=== PATIENT | male | born 1935 | race Caucasian/White ===

== ENCOUNTER 2016-12-26 05:40 | Inpatient (IN) | payer OTHER ==
[~2016-12-26] VITALS: Ht 167.6 cm; Wt 78.7 kg
--- NOTE | ~2016-12-26 | EKG ---
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: Bárbara GALVAN : 1935 Requested By: Luis E Chowdhury Order Number: [id number] MD: Dashawn Sung Measurements Intervals [place] Rate: 54 P: 46 SD: 191 QRS: 48 QRSD: 96 T: 14 QT: 459 QTc: 435 Interpretive Statements Sinus rhythm Borderline T wave abnormalities Compared to ECG 12/26/2016 05:49:42 T-wave abnormality now present Sinus bradycardia no longer present Electronically Signed On 12-26-2016 14:12:38 CDT by Dashawn Sung [email or web address] <ELECTRONICALLY SIGNED> By: Dashawn Sung MD 12/26/16 1412 1017 1017 Dashawn Sung MD /[facility]
--- NOTE | ~2016-12-26 | 2DMMODE ---
[facility] [address] [employer] [place] [address] 2 D/M-MODE ECHOCARDIOGRAM Name: AUDREY WANG Room #: 208-P [facility] IN [facility]#: [id number] Admission: 12/26/16 Attend Phys: Jaden Hendrix MD Discharge: Date of : 37 Date of Service: 12/26/16 1606 Report #: [id number] THIS REPORT FOR: //name// APPROVED REPORT Study performed: 12/26/2016 11:08:48 EXAM: Comprehensive 2D, Doppler, and color-flow Echocardiogram Patient Location: Bedside Room #: 208 Status: routine Other Information Study Quality: Good Risk Factors: Cardiac Risk Factors: DM, Hyperlipidemia Indications Aortic Valve Disease Diabetes Syncope Chest Pain 2D Dimensions RVDd: 33.82 mm LVEF(%): 62.24 (>50%) IVSd: 8.56 (7-11mm) LVOT Diam: 17.59 (18-24mm) LVDd: 41.12 mm PWd: 9.38 (7-11mm) LVDs: 27.48 (25-40mm) Aortic Root: 33.63 mm IVC: 21.00 mm Wilson's LVEF: 62.24 % Volumes Left Atrial Volume (Systole) Single Plane 4CH: 46.90 mL Single Plane 2CH: 42.23 mL LA ESV Index: 28.00 mL/m2 Aortic Valve AoV Peak Jaime.: 3.98 m/s AO Peak Gr.: 63.41 mmHg LVOT Max P.47 mmHg AO Mean Gr.: 42.92 mmHg LVOT Mean P.71 mmHg AO V2 Mean: 3.17 m/s LVOT Max V: 0.93 m/s AO V2 VTI: 108.90 cm LVOT Mean V: 0.60 m/s OLE (VTI): 0.49 cm2 LVOT V1 VTI: 22.18 cm [facility] [address] [place] [address] 2 D/M-MODE ECHOCARDIOGRAM Name: AUDREY WANG Room #: 208-P [facility] IN .R.#: [id number] Admission: 12/26/16 Attend Phys: Jaden Hendrix MD Discharge: Date of : 37 Date of Service: 12/26/16 1606 Report #: [id number] [id number] Vmax: 0.57 cm2 AI Vmax: 4.89 m/s SV (LVOT): 53.88 mL AI [place]: 2.40 m/s2 AI PHT: 590.53 ms Mitral Valve E/A Ratio: 1.0 MV Decel. Time: 232.05 ms MV E Max Jaime.: 1.08 m/s MV A Jaime.: 1.07 m/s MV PHT: 67.30 ms IVRT: 96.89 ms Pulmonary Valve PV Peak Jaime.: 0.83 m/s PV Peak Gr.: 2.78 mmHg Pulmonary Vein P Vein S: 0.50 m/s P Vein A: 0.23 m/s P Vein D: 0.28 m/s P Vein A Dur.: 101.5 msec P Vein S/D Ratio: 1.79 Tricuspid Valve TR Peak Jaime.: 2.95 m/s RAP Estimate: 10.00 mmHg TR Peak Gr.: 34.85 mmHg PA Pressure: 45.00 mmHg Left Ventricle The left ventricle is normal size. There is normal LV segmental wall motion. There is normal left ventricular wall thickness. The left ventricular systolic function is normal. The left ventricular ejection fraction is within the normal range. LVEF is 55-60%. The left ventricular diastolic function is normal. Right Ventricle The right ventricle is normal size. The right ventricular systolic function is normal. Atria The left atrium size is normal. The right atrium size is normal. Aortic Valve Aortic valve is calcified. Mild aortic regurgitation. Severe aortic stenosis. Calculated aortic valve area is 0.6 cm2 with maximum pressure gradient of 63 mmHg and mean pressure gradient of 42 [place] [address] 2 D/M-MODE ECHOCARDIOGRAM Name: AUDREY WANG Room #: 208-P [facility] IN M.R.#: [id number] Admission: 12/26/16 Attend Phys: Jaden Hendrix MD Discharge: Date of : 37 Date of Service: 12/26/16 1606 Report #: [id number] Mitral Valve Mild mitral annular calcification Mild mitral regurgitation. No evidence of mitral valve stenosis. Tricuspid Valve The tricuspid valve is normal in structure. There is mild tricuspid regurgitation. The right atrial pressure is estimated at 10 mmHg. There is moderate pulmonary hypertension. Pulmonic Valve The pulmonary valve is normal in structure. There is no pulmonic valvular regurgitation. Great Vessels There is moderate ascending aorta dilatation. 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 Pericardium There is no pericardial effusion. <Conclusion> The left ventricular systolic function is normal. There is normal LV segmental wall motion. LVEF is 55-60%. Aortic valve is calcified. Severe aortic stenosis, aortic valve area is 0.6 cm2 with maximum pressure gradient of 63 mmHg and mean pressure gradient of 42 mmHg. Mild aortic regurgitation. Mild mitral annular calcification. Mild mitral regurgitation. 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 Cannot exclude intimal flap. There is no pericardial effusion. <ELECTRONICALLY SIGNED> By: Rolo Collazo MD, FACC 12/26/16 1606 05 160 Rolo Collazo MD, FACC /INF
--- NOTE | ~2016-12-26 | EKG ---
[address] [place] [address] ELECTROCARDIOGRAM REPORT Name: AUDREY WANG Room #: 242-P ADM IN M.R.#: [id number] Admission: 12/26/16 Attend Phys: Jaden Hendrix MD Discharge: Date of : 37 Report #: [id number] THIS REPORT FOR: //name// [facility] Test Date: 2016-12-28 Test Time: 07:32:37 Pat Name: AUDREY WANG Department: Room: 242 P Gender: M Performance Architect: Bárbara GALVAN : 1935 Requested By: Michelle Ayoub Order Number: [id number] MD: Rolo Collazo Measurements Intervals [place] Rate: 86 P: 52 OR: 118 QRS: 70 QRSD: 135 T: 32 QT: 395 QTc: 473 Interpretive Statements Sinus rhythm Borderline short OR interval Right bundle branch block Compared to ECG 12/27/2016 07:49:17 Right bundle-branch block now present Electronically Signed On 12-28-2016 8:25:43 CDT by Rolo Collazo [email or web address] <ELECTRONICALLY SIGNED> By: Rolo Collazo MD, [facility] 12/28/1625 1 Rolo Collazo MD, [facility] /EPI
--- NOTE | ~2016-12-26 | O ---
[facility] [place] [address] OPERATIVE REPORT Name: AUDREY WANG Room #: 214-P [facility] [id number] Admission: 12/26/16 Attend Phys: Jaden Hendrix MD Discharge: 01/02/17 Date of : 37 Report #: [id number] THIS REPORT FOR: //name// CC: Rolo Collazo MD [facility] Jaden Morelos DATE OF SERVICE: 12/26/2016 DATE OF OPERATION: 12/26/2016 PREOPERATIVE DIAGNOSES: 1. Type A aortic dissection. 2. History of dzbdzkkf-zc-fnikqy aortic stenosis. OPERATIVE PROCEDURE PERFORMED: 1. Repair of type A aortic dissection with 28 mm Dacron interposition tube graft in the ascending aorta. 2. Aortic valve replacement with 27 mm Magna Ease Bovine pericardial bioprosthesis. 3. Left femoral artery exploration. 4. Deep hyperthermic circulatory arrest, 25 minutes. FINAL DIAGNOSES: 1. Repair of a type A aortic dissection with 28 mm Dacron interposition tube graft in the ascending aorta. 2. Aortic valve replacement with 27 mm Magna Ease Bovine pericardial bioprosthesis. 3. Left femoral artery exploration. 4. Deep hyperthermic circulatory arrest, 25 minutes. SURGEON: Manjit Moreno MD FONDANT PUFF MAKER: Trina Connell MD ANESTHESIA: General. OPERATIVE INDICATIONS: The patient is a 81-year-old male with the known history of coronary artery disease, prior stent placement. The patient was recently admitted with the complaint of syncopal episode. He had also complained of some jaw and neck pain. The patient had known history of moderate aortic stenosis, but when reevaluated upon echo, was found to have severe aortic stenosis. The echo demonstrated dilated aorta and subsequent CT scan demonstrated a type A dissection. The previous heparin drip that the patient was been on was stopped. We were consulted in his care, and the patient was subsequently brought to the [facility] [address] [address] OPERATIVE REPORT Name: AUDREY WANG Room #: 214-P [facility]#: [id number] Admission: 12/26/16 Attend Phys: Jaden Hendrix MD Discharge: 01/02/17 Date of : 37 Report #: [id number] operating room for emergent repair of this type A aortic dissection. OPERATIVE SUMMARY: The patient was brought to the operating room and placed on the OR table in a supine position. After anesthesia was induced via the general endotracheal route and monitoring lines have been positioned, the patient was prepped and draped in sterile fashion with chlorhexidine. I first performed the median sternotomy incision, but did not open the pericardium. We then made an oblique incision in the left groin, dissected down to expose the contents of the femoral sheath and isolated the common profunda and superficial femoral arteries. We gave the patient large dose of heparin. We cannulated the left common femoral artery with a 24-Ugandan cannula. We then opened the pericardium. We immediately encountered old clotted and unclotted blood. The ascending aorta was clearly dissected. We created the pericardial well and dissected the ascending aorta from the pericardium. We placed a venous cannula in the right atrium and antegrade cardioplegic cannula was placed in the ascending aorta. Cardiopulmonary bypass was begun. We then placed a retrograde cardioplegic cannula. Then under low flow conditions, the aorta was cross clamped distally and the heart was arrested with cold antegrade cardioplegia approximately 1 liter and then cold retrograde cardioplegia approximately 500 mL. A good diastolic arrest was achieved. This was augmented with topical ice slush and a phrenic nerve protector was used. Diastolic arrest was achieved and maintained throughout this operation with intermittent doses of cold retrograde and antegrade cardioplegia as well as topical ice slush. Immediate cooling was performed anticipating deep hypothermic circulatory arrest. While we were cooling the patient, we excised the ascending aorta, T'ing things off close to the clamp distally. Proximally, the dissection extended into the right and the noncoronary sinuses. We reapproximated the aorta layers using BioGlue in the sinuses. We found the aortic valve leaflets to be heavily calcified and poorly mobile. They were excised. The annulus was debrided of any calcifications. We sized the valve and felt that a 27 mm aortic bioprosthesis would be appropriate. This was an [employer] product, the Magna Ease Bovine pericardial valve. We then placed our 2-0 Ethibond sutures from the ventricular to the aortic side of the annulus circumferentially around the annulus. The sutures were brought up through the valve sewing rim. The valve was seated. Sutures were securely tied. About this time, we reached a low temperature of 18 degrees centigrade. We placed the patient in steep Trendelenburg. We shut the tube off and drained blood to be able to expose aortic arch. We found a tear in the arch at the base of the innominate artery. This was repaired with pledgeted 4-0 Prolene sutures from the anterior to the exterior of the aorta. I felt there was good apposition of this tear. We then trimmed the aorta just proximal to the innominate artery and then reapproximated the layers of the aorta with BioGlue. We placed a felt stripe around the aorta distally just as we had done on the proximal aorta after valve replacement was performed. Next, we performed our distal anastomosis. We selected 28 mm Dacron tube graft, constructed anastomosis with 4-0 Prolene, taking care to vaginate [facility] [address] [place] [address] OPERATIVE REPORT Name: SUMMERSOFIAUDREY Room #: 214-P [facility] IN ..#: [id number] Admission: 12/26/16 Attend Phys: Jaden Hendrix MD Discharge: 01/02/17 Date of : 37 Report #: [id number] the graft into the anterior of the aorta. Once this was completed, we slowly restarted the pump, taking care to make sure the head vessels were appropriately deaired. We then resumed full flow and full rewarming of the patient. Next, we constructed our proximal anastomosis using 4-0 Prolene to the proximal aorta. An antegrade vent needle was placed in the graft. With the patient still in steep Trendelenburg, we gave warm cardioplegia both retrograde and antegrade and performed deairing maneuvers in the left ventricular apex with an 18 gauge needle while holding blood in the heart and ventilating the lungs. The retrograde cannula was removed. We gave antegrade cardioplegia that was warm and performed similar deairing maneuvers, and then under low flow conditions, the aortic crossclamp was released and further deairing maneuvers were again completed through the left ventricular apex with an 18 gauge needle while ventilating the lungs. We then placed the patient back in the supine position. The patient was fully rewarmed to 37 degree centigrades. Three successive doses of calcium and a single dose of magnesium were given over 3-5 minute intervals. Atrial and ventricular pacing wires were placed. The patient developed a suitable rhythm with pacing. Lungs were reinflated. The patient was weaned from cardiopulmonary bypass without inotropic support. Protamine was given to reverse the heparin and multiple blood products including packed red blood cells, FFP, cryoprecipitate and platelets were given in order to achieve hemostasis. We also gave recombinant factor VII. We felt the bleeding was appropriately controlled. We loosely reapproximated the pericardium over the aorta, placed two 32-Ugandan chest tubes in the pericardial space and brought them out through separate stab incisions. The sternum was closed with #7 wire. The fascia, subcutaneous and skin were closed in multiple layers with absorbable suture. The femoral artery that had previously been cannulated was decannulated, was repaired with 5-0 Prolene sutures in a running fashion. It was appropriately deaired and flow was then allowed back down the femoral artery. This wound was then closed in multiple layers with absorbable suture. We remained in the operating room for at least an hour while giving additional blood products and observing chest tube effluent. After approximately 500 mL of output, I elected to re-explore the patient. We reentered through the prior median sternotomy incision, removed the wires. We found a lot of clot anteriorly. I ultimately found a place on the distal anastomosis that was oozing. This was controlled with the single pledgeted 4-0 Prolene suture. Some bleeding was also noted from the soft tissues near the top of the sternum. Again once adequate hemostasis was achieved, the sternum was closed with #7 wire. The fascia, subcutaneous and skin were closed in multiple layers of absorbable suture. The procedure was completed. The patient was taken to the ICU in critical condition. Stable hemodynamics were present however. [address] [address] OPERATIVE REPORT Name: AUDREY WANG Room #: 214-P DIS IN M.R.#: [id number] Admission: 12/26/16 Attend Phys: Jaden Hendrix MD Discharge: 01/02/17 Date of : 37 Report #: [id number] Cardiopulmonary bypass times and crossclamp times are not available to me. Therapeutic circulatory arrest time was 25 minutes. <ELECTRONICALLY SIGNED> By: Manjit Moreno MD 01/24/17 0805 1759 194 Manjit Moreno MD /nt
--- NOTE | ~2016-12-26 | S ---
[facility] [place] [address] SURGICAL PATH RPT PROCEDURE Name: AUDREY JOSHI Aguilar Room #: 214-P ADM IN M.R.#: [id number] Admission: 12/26/16 Date of : 37 Discharge: Report #: [id number] Path Case #: [id number] PATHOLOGY REPORT COLLECTION DATE: 12/26/2016 RECEIVED DATE: 12/27/2016 SUBMITTING PHYS: Dr. Manjit Moreno OTHER PHYS: Dr. Trina Connell M.D. Dr. Jaden Collazo SPECIMEN(S) RECEIVED: A.Segment of ascending aorta B.Aortic valve * * * * * * * * * * * * FINAL DIAGNOSIS: A. Segment of ascending aorta, repair: - Extensive hemorrhage within vessel wall, consistent with the history of dissection. B. Aortic valve, repair: - Calcific sclerosis. PATHOLOGIST: Skyla Delgado M.D. REPORT ELECTRONICALLY SIGNED BY: Skyla Delgado M.D. DATE/TIME: 12/29/2016 16:27 * * * * * * * * * * * * GROSS PATHOLOGY: A. The specimen is received in formalin labeled "Audrey Joshi, segment of ascending aorta". Received are multiple segments of pale covarrubias vascular tissue measuring 7.8 x 4.8 x 2.8 cm in aggregate dimensions. The lining is whittaker-covarrubias to hemorrhagic in appearance. The specimen is submitted representatively in cassette A1. B. The specimen is received in formalin labeled "Audrey Joshi, aortic valve". Received are multiple segments of predominantly calcified white-covarrubias rubbery tissue measuring 3.7 x 2.2 x 0.6 cm in aggregate dimensions. The specimen is submitted representatively in cassette A1, following light decalcification. (CAA; 12/28/2016) CLINICAL HISTORY: Dissecting ascending thoracic aneurysm, severe aortic stenosis INITIAL CPT CODE(S): [facility] [address] [place] [address] SURGICAL PATH RPT PROCEDURE Name: AUDREY JOSHI Room #: 214-P [facility] IN ..#: [id number] Admission: 12/26/16 Date of : 37 Discharge: Report #: [id number] Path Case #: [id number]; [id number] B; [id number], [id number] Professional services performed by [facility] at [address], [place] [address] Technical services performed by [facility] at [address] [place] [address], [facility] [place] [address], [place] [address]. [facility] [place] [address] PHONE: [phone] DIRECTOR: Ash Garber M.D. * * * END OF REPORT * * *
--- NOTE | ~2016-12-26 | EKG ---
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 : 1935 Requested By: Kellie Cohen Order Number: [id number] MD: Rolo Collazo Measurements Intervals [place] Rate: 52 P: 36 [place]: 202 QRS: 42 QRSD: 103 T: 77 QT: 474 QTc: 441 Interpretive Statements Sinus bradycardia Baseline wander in lead(s) III Compared to ECG 07/24/1992 10:33:00 T-wave abnormality no longer present Electronically Signed On 12-26-2016 9:28:50 CDT by Rolo Collazo [email or web address] <ELECTRONICALLY SIGNED> By: Rolo Collazo MD, [facility] 12/26/16 0928 0549 0549 Rolo Collazo MD, [facility] /EPI
--- NOTE | ~2016-12-26 | EKG ---
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: Bárbara GALVAN : 1935 Requested By: Michelle Ayoub Order Number: [id number] MD: Dashawn Sung Measurements Intervals [place] Rate: 66 P: 69 [place]: 181 QRS: 72 QRSD: 84 T: 59 QT: 439 QTc: 460 Interpretive Statements Sinus rhythm ST elevation suggests acute pericarditis Compared to ECG 12/26/2016 10:17:52 ST (T wave) deviation now present T-wave abnormality no longer present Electronically Signed On 12-27-2016 8:14:58 CDT by Dashawn Sung [email or web address] <ELECTRONICALLY SIGNED> By: Dashawn Sung MD 12/27/16 0814 Dashawn Sung MD /EPI
--- NOTE | ~2016-12-26 | EKG ---
[address] [address] ELECTROCARDIOGRAM REPORT Name: AUDREY WANG Room #: 208-P ADM IN M.R.#: [id number] Admission: 12/26/16 Attend Phys: Jaden Hendrix MD Discharge: Date of : 39 Report #: [id number] THIS REPORT FOR: //name// [facility] ED Test Date: 2016-12-26 Test Time: 06:36:41 Pat Name: AUDREY WANG Department: Room: 208 P Gender: M Merchant Miller: PAOLA : 1935 Requested By: Rolo Collazo Order Number: [id number] MD: Dashawn Sung Measurements Intervals [place] Rate: 53 P: 34 [place]: 196 QRS: 41 QRSD: 102 T: 66 QT: 464 QTc: 436 Interpretive Statements Sinus rhythm Compared to ECG 12/26/2016 05:49:42 Sinus bradycardia no longer present Electronically Signed On 12-26-2016 17:05:17 CDT by Dashawn Sung [email or web address] <ELECTRONICALLY SIGNED> By: Dashawn Sung MD 12/26/16 1705 Dashawn Sung MD /MARK
[2016-12-26 05:42] VITALS: BP 129/83
[2016-12-26] MEDS ORDERED: ATORVASTATIN CA80 MG PO (05:47)
[2016-12-26] MEDS ORDERED: GLIMEPIRIDE1 MG PO (05:47)
[2016-12-26] MEDS ORDERED: GLUCOPHAGE XR750 MG PO (05:47)
[2016-12-26 06:10] LABS: ABSOLUTE NEUTROPHILS 5.3 thou/uL (1.4-8.2); BASOPHILS 0.4 % (0.0-2.0); EOSINOPHILS 5.8 % (0.0-3.0); HEMATOCRIT 38.7 % (42.0-52.0); HEMOGLOBIN 13.1 gm/dL (14.0-18.0); LYMPHOCYTES 15.1 % (24.0-44.0); MCH 32.6 pg (26.0-34.0); MCHC 33.8 g/dL (28.0-37.0); MCV 96.5 fL (80.0-100.0); MONOCYTES 5.2 % (1.0-8.0); PLATELET COUNT 165 thou/uL (150-400); POLYS 73.5 % (36.0-66.0); RBC 4.01 mil/uL (4.50-6.00); RDW 14.2 % (10.5-14.5); WBC 7.2 thou/uL (4.0-11.0)
[2016-12-26 06:20] LABS: CALCIUM 8.4 mg/dL (8.5-10.1); CREATININE 1.4 mg/dL (0.7-1.3); POTASSIUM 4.7 mmol/L (3.5-5.1)
[2016-12-26 06:28] LABS: TROPONIN-I 0.04 ng/mL (<0.04-0.07)
[2016-12-26 06:33] LABS: MANUAL DIFF NO
[2016-12-26 08:18] VITALS: BP 110/71
[2016-12-26 08:40] VITALS: BP 144/84
[2016-12-26 08:56] LABS: CHOLESTEROL 155 mg/dL (<200); HDL CHOLESTEROL 50 mg/dL (>40); LDL CHOLESTEROL 78 mg/dL (<100); TC:HDL 3.1 Ratio (Not establshd); TRIGLYCERIDE 136 mg/dL (<150); VLDL 27 mg/dL (<40)
[2016-12-26 11:10] VITALS: BP 143/93
[2016-12-26 15:50] VITALS: BP 186/119
[2016-12-26 23:43] LABS: HEMATOCRIT 21.8 % (42.0-52.0); HEMOGLOBIN 7.3 gm/dL (14.0-18.0); MCH 31.3 pg (26.0-34.0); MCHC 33.4 g/dL (28.0-37.0); MCV 93.7 fL (80.0-100.0); RBC 2.33 mil/uL (4.50-6.00); RDW 14.5 % (10.5-14.5); WBC 13.3 thou/uL (4.0-11.0)
[2016-12-27] VITALS (19 sets, daily range): BP systolic 60–102; BP diastolic 44–68
[2016-12-27 00:04] LABS: APTT 31.6 Seconds (24.5-32.8); FIBRINOGEN 133.4 mg/dL (210-360); PROTIME 10.3 Seconds (9.3-11.4)
[2016-12-27 00:22] LABS: POC BE 0 mmol/L (-2.0 to +3.0); POC CA IONIZED 3.8 mg/dL (4.5-5.3); POC FiO2 100 %; POC GLUCOSE 157 mg/dL (70-99); POC HEMOGLOBIN 7.8 g/dL (14.0-18.0); POC POTASSIUM > 7.5 mmol/L (3.5-5.1); POC SODIUM 128 mmol/L (136-145); POC pCO2 50.8 mmHg (35.0-45.0); POC pH 7.316 (7.360-7.450)
[2016-12-27 00:22] LABS: POC BE 1 mmol/L (-2.0 to +3.0); POC CA IONIZED 3.1 mg/dL (4.5-5.3); POC FiO2 100 %; POC GLUCOSE 165 mg/dL (70-99); POC HCO3 22.8 mmol/L (22.0-26.0); POC HEMOGLOBIN 6.1 g/dL (14.0-18.0); POC POTASSIUM 6.9 mmol/L (3.5-5.1); POC SODIUM 121 mmol/L (136-145); POC pCO2 25.3 mmHg (35.0-45.0); POC pH 7.564 (7.360-7.450)
[2016-12-27 00:22] LABS: POC BE -5 mmol/L (-2.0 to +3.0); POC CA IONIZED 3.8 mg/dL (4.5-5.3); POC FiO2 100 %; POC GLUCOSE 174 mg/dL (70-99); POC HCO3 21.5 mmol/L (22.0-26.0); POC HEMOGLOBIN 7.5 g/dL (14.0-18.0); POC POTASSIUM 5.4 mmol/L (3.5-5.1); POC SODIUM 132 mmol/L (136-145); POC pCO2 46.5 mmHg (35.0-45.0); POC pH 7.274 (7.360-7.450)
[2016-12-27 00:22] LABS: POC BE -3 mmol/L (-2.0 to +3.0); POC CA IONIZED 3.7 mg/dL (4.5-5.3); POC FiO2 30 %; POC GLUCOSE 149 mg/dL (70-99); POC HCO3 22.4 mmol/L (22.0-26.0); POC HEMOGLOBIN 7.5 g/dL (14.0-18.0); POC POTASSIUM 7.2 mmol/L (3.5-5.1); POC SODIUM 126 mmol/L (136-145); POC pCO2 40.5 mmHg (35.0-45.0)
[2016-12-27 00:22] LABS: POC BE 0 mmol/L (-2.0 to +3.0); POC CA IONIZED 4.3 mg/dL (4.5-5.3); POC FiO2 100 %; POC GLUCOSE 182 mg/dL (70-99); POC HCO3 23.2 mmol/L (22.0-26.0); POC HEMOGLOBIN 6.8 g/dL (14.0-18.0); POC POTASSIUM 5.9 mmol/L (3.5-5.1); POC SODIUM 128 mmol/L (136-145); POC pCO2 30.8 mmHg (35.0-45.0); POC pH 7.486 (7.360-7.450)
[2016-12-27 00:22] LABS: POC BE 1 mmol/L (-2.0 to +3.0); POC CA IONIZED 3.5 mg/dL (4.5-5.3); POC FiO2 100 %; POC GLUCOSE 180 mg/dL (70-99); POC HCO3 24.5 mmol/L (22.0-26.0); POC HEMOGLOBIN 6.8 g/dL (14.0-18.0); POC POTASSIUM 7.1 mmol/L (3.5-5.1); POC SODIUM 126 mmol/L (136-145); POC pCO2 34.7 mmHg (35.0-45.0); POC pH 7.457 (7.360-7.450)
[2016-12-27 00:22] LABS: POC BE -1 mmol/L (-2.0 to +3.0); POC CA IONIZED 4.3 mg/dL (4.5-5.3); POC FiO2 100 %; POC GLUCOSE 171 mg/dL (70-99); POC HCO3 23.8 mmol/L (22.0-26.0); POC HEMOGLOBIN 11.6 g/dL (14.0-18.0); POC POTASSIUM 5.2 mmol/L (3.5-5.1); POC SODIUM 135 mmol/L (136-145); POC pH 7.382 (7.360-7.450)
[2016-12-27 00:22] LABS: POC BE -4 mmol/L (-2.0 to +3.0); POC CA IONIZED 3.8 mg/dL (4.5-5.3); POC FiO2 100 %; POC GLUCOSE 152 mg/dL (70-99); POC HCO3 22.3 mmol/L (22.0-26.0); POC HEMOGLOBIN 8.2 g/dL (14.0-18.0); POC POTASSIUM > 7.5 mmol/L (3.5-5.1); POC SODIUM 130 mmol/L (136-145); POC pH 7.294 (7.360-7.450)
[2016-12-27 00:22] LABS: POC BE -2 mmol/L (-2.0 to +3.0); POC CA IONIZED 3.6 mg/dL (4.5-5.3); POC FiO2 100 %; POC GLUCOSE 171 mg/dL (70-99); POC HCO3 21.8 mmol/L (22.0-26.0); POC HEMOGLOBIN 8.8 g/dL (14.0-18.0); POC SODIUM 134 mmol/L (136-145); POC pCO2 29.8 mmHg (35.0-45.0); POC pH 7.472 (7.360-7.450)
[2016-12-27 01:06] LABS: HEMATOCRIT 22.5 % (42.0-52.0); HEMOGLOBIN 7.8 gm/dL (14.0-18.0); MCH 32.2 pg (26.0-34.0); MCHC 34.7 % (28.0-37.0); RBC 2.42 mil/uL (4.50-6.00); RDW 14.6 % (10.5-14.5); WBC 10.3 thou/uL (4.0-11.0)
[2016-12-27 01:23] LABS: APTT 29.8 Seconds (24.5-32.8); FIBRINOGEN 195.8 mg/dL (210-360)
[2016-12-27 02:51] LABS: POC BE -4 mmol/L (-2.0 to +3.0); POC CA IONIZED 4.1 mg/dL (4.5-5.3); POC FiO2 100 %; POC GLUCOSE 147 mg/dL (70-99); POC HCO3 20.2 mmol/L (22.0-26.0); POC HEMOGLOBIN 7.8 g/dL (14.0-18.0); POC POTASSIUM 4.1 mmol/L (3.5-5.1); POC SODIUM 137 mmol/L (136-145); POC pCO2 31.8 mmHg (35.0-45.0); POC pH 7.413 (7.360-7.450)
[2016-12-27 02:51] LABS: POC BE -2 mmol/L (-2.0 to +3.0); POC CA IONIZED 3.9 mg/dL (4.5-5.3); POC FiO2 100 %; POC GLUCOSE 142 mg/dL (70-99); POC HCO3 21.5 mmol/L (22.0-26.0); POC HEMOGLOBIN 7.5 g/dL (14.0-18.0); POC SODIUM 137 mmol/L (136-145); POC pCO2 30.8 mmHg (35.0-45.0); POC pH 7.453 (7.360-7.450)
[2016-12-27 08:54] LABS: ABG SAMPLE TYPE ARTERIAL; BE(vivo) -6.1 mmol/L (-2 to +3); HCO3 18.1 mmol/L (22.0-26.0); LACTATE 2.77 mmol/L (0.5-2.0); O2(CT) 15.2 mL/dL (15.0-23.0); O2Hb 97.6 % (92.0-98.0); PCO2 31.2 mmHg (35.0-45.0); PO2 217.2 mmHg (80.0-100.0); pH 7.381 (7.360-7.450); sO2 99.4 % (92.0-98.0)
[2016-12-27 08:55] LABS: HEMATOCRIT 25.6 % (42.0-52.0); HEMOGLOBIN 8.8 gm/dL (14.0-18.0); MCH 31.3 pg (26.0-34.0); MCHC 34.4 g/dL (28.0-37.0); MCV 90.9 fL (80.0-100.0); RBC 2.82 mil/uL (4.50-6.00); RDW 15.9 % (10.5-14.5); WBC 9.4 thou/uL (4.0-11.0)
[2016-12-27 08:56] LABS: STICK SITE LINE
[2016-12-27 08:57] LABS: TIDAL VOLUME 600 ml
[2016-12-27 09:05] LABS: CREATININE 1.9 mg/dL (0.7-1.3); POTASSIUM 4.6 mmol/L (3.5-5.1)
[2016-12-27 09:09] LABS: ABG SAMPLE TYPE VENOUS; BE(vivo) -5.5 mmol/L (-2 to +3); HCO3 20.5 mmol/L (22.0-26.0); LACTATE 2.14 mmol/L (0.5-2.0); O2(CT) 6.5 mL/dL (15.0-23.0); PCO2 VENOUS 42.6 mmHg (41.0-51.0); PO2 VENOUS 29.7 mmHg (35.0-45.0); sO2 VENOUS 50.4 % (65.0-85.0); tCO2 21.8 mmol/L (24.0-30.0)
[2016-12-27 09:09] LABS: PROTIME 10.6 Seconds (9.3-11.4)
[2016-12-27 09:10] LABS: O2Hb VENOUS 50.3 (65.0-85.0); STICK SITE LINE
[2016-12-27 09:14] LABS: ALBUMIN 3.4 g/dL (3.4-5.0); TOTAL BILIRUBIN 0.8 mg/dL (<0.1-1.0); TOTAL PROTEIN 4.9 g/dL (6.4-8.2)
[2016-12-27 11:01] LABS: POC BE 3 mmol/L (-2.0 to +3.0); POC CA IONIZED 3.6 mg/dL (4.5-5.3); POC FiO2 7 %; POC GLUCOSE 154 mg/dL (70-99); POC HCO3 27.2 mmol/L (22.0-26.0); POC HEMOGLOBIN 7.5 g/dL (14.0-18.0); POC POTASSIUM 6.7 mmol/L (3.5-5.1); POC SODIUM 129 mmol/L (136-145); POC pCO2 40.6 mmHg (35.0-45.0); POC pH 7.434 (7.360-7.450)
[2016-12-27 12:54] LABS: HEMOGLOBIN 10.1 gm/dL (14.0-18.0); RBC 3.36 mil/uL (4.50-6.00); WBC 11.7 thou/uL (4.0-11.0)
[2016-12-27 12:55] LABS: CREATININE 1.6 mg/dL (0.7-1.3); HEMATOCRIT 30.6 % (42.0-52.0); MCH 29.9 pg (26.0-34.0); MCHC 32.9 % (28.0-37.0); POTASSIUM 4.3 mmol/L (3.5-5.1); RDW 15.6 % (10.5-14.5)
[2016-12-27 12:56] LABS: CALCIUM 7.9 mg/dL (8.5-10.1); MAGNESIUM 2.1 mg/dL (1.8-2.4)
[2016-12-27 16:14] LABS: CREATININE 2.4 mg/dL (0.7-1.3)
[2016-12-27 20:08] LABS: ABG COMMENT CMV; ABG SAMPLE TYPE ARTERIAL; BE(vivo) -3.7 mmol/L (-2 to +3); LACTATE 1.62 mmol/L (0.5-2.0); O2(CT) 12.8 mL/dL (15.0-23.0); O2Hb 96.7 % (92.0-98.0); PO2 126.7 mmHg (80.0-100.0); STICK SITE ALINE; TIDAL VOLUME 600 ml; pH 7.383 (7.360-7.450); sO2 98.5 % (92.0-98.0); tCO2 22.1 mmol/L (24.0-30.0)
[2016-12-27 20:33] LABS: ABG SAMPLE TYPE ARTERIAL; BE(vivo) -6.2 mmol/L (-2 to +3); HCO3 19.3 mmol/L (22.0-26.0); LACTATE 1.23 mmol/L (0.5-2.0); O2(CT) 12.2 mL/dL (15.0-23.0); O2Hb 96.3 % (92.0-98.0); PO2 120.6 mmHg (80.0-100.0); Pressure Support 6 cm H20; STICK SITE ALINE; pH 7.323 (7.360-7.450); sO2 98.1 % (92.0-98.0); tCO2 20.4 mmol/L (24.0-30.0)
[2016-12-27 21:43] LABS: ABG SAMPLE TYPE ARTERIAL; BE(vivo) -6.3 mmol/L (-2 to +3); LACTATE 1.17 mmol/L (0.5-2.0); O2(CT) 12.3 mL/dL (15.0-23.0); O2Hb 96.5 % (92.0-98.0); PO2 126.9 mmHg (80.0-100.0); sO2 98.3 % (92.0-98.0); tCO2 20.2 mmol/L (24.0-30.0)
[2016-12-27 21:44] LABS: STICK SITE ALINE; pH 7.329 (7.360-7.450)
[2016-12-28] VITALS (17 sets, daily range): BP systolic 89–135; BP diastolic 54–83
[2016-12-28 05:47] LABS: HEMATOCRIT 23.7 % (42.0-52.0); HEMOGLOBIN 8.1 gm/dL (14.0-18.0); MCHC 34.3 g/dL (28.0-37.0); MCV 90.3 fL (80.0-100.0); RBC 2.63 mil/uL (4.50-6.00); RDW 16.8 % (10.5-14.5); WBC 9.5 thou/uL (4.0-11.0)
[2016-12-28 05:57] LABS: CALCIUM 7.8 mg/dL (8.5-10.1); CREATININE 2.7 mg/dL (0.7-1.3); MAGNESIUM 2.1 mg/dL (1.8-2.4); POTASSIUM 4.8 mmol/L (3.5-5.1)
[2016-12-28 17:56] LABS: URINE BILIRUBIN NEGATIVE (Negative); URINE BLOOD 2+ (Negative); URINE COLOR YELLOW; URINE GLUCOSE-RANDOM* NEGATIVE (Negative); URINE KETONES NEGATIVE (Negative); URINE NITRITE NEGATIVE (Negative); URINE PROTEIN (DIPSTICK) TRACE (Negative); URINE UROBILINOGEN 0.2 E.U./dl (0.2-1.0)
[2016-12-28 18:08] LABS: BACTERIA 1-9 Few /HPF (None Seen); CRYSTALS None Seen /LPF (None Seen); HYALINE CASTS >10 Many /LPF (None Seen); SQUAMOUS 0-3 Few /LPF (0-3); URINE RBC 3-10 Few /HPF (0-2); URINE WBC 6-15 Few /HPF (0-5)
[2016-12-29] VITALS (18 sets, daily range): BP systolic 97–126; BP diastolic 54–87
[2016-12-29 05:30] LABS: CALCIUM 7.8 mg/dL (8.5-10.1); CREATININE 2.3 mg/dL (0.7-1.3); POTASSIUM 4.6 mmol/L (3.5-5.1)
[2016-12-30 03:35] VITALS: BP 121/66
[2016-12-30 04:52] LABS: POTASSIUM 4.4 mmol/L (3.5-5.1)
[2016-12-30 08:06] VITALS: BP 122/67
[2016-12-30 15:13] VITALS: BP 119/66
[2016-12-30 19:32] VITALS: BP 126/67
[2016-12-30 23:13] VITALS: BP 121/73
[2016-12-31 03:51] VITALS: BP 133/68
[2016-12-31 05:15] LABS: CALCIUM 8.3 mg/dL (8.5-10.1); CREATININE 1.9 mg/dL (0.7-1.3); PHOSPHORUS 3.6 mg/dL (2.5-4.9); POTASSIUM 4.2 mmol/L (3.5-5.1)
[2016-12-31 08:18] VITALS: BP 138/76
[2016-12-31 12:39] VITALS: BP 116/58
[2016-12-31 16:22] VITALS: BP 120/61
[2016-12-31 19:39] VITALS: BP 147/79
[2017-01-01 03:19] LABS: ALBUMIN 2.8 g/dL (3.4-5.0); CALCIUM 7.9 mg/dL (8.5-10.1); CREATININE 1.7 mg/dL (0.7-1.3); PHOSPHORUS 3.4 mg/dL (2.5-4.9); POTASSIUM 4.5 mmol/L (3.5-5.1)
[2017-01-01 03:50] VITALS: BP 128/68
[2017-01-01 08:00] VITALS: BP 120/72
[2017-01-01 12:00] VITALS: BP 121/66
[2017-01-01 16:00] VITALS: BP 121/67
[2017-01-01 19:18] VITALS: BP 139/71
[2017-01-01 23:20] VITALS: BP 145/65
[2017-01-02 03:02] LABS: ALBUMIN 2.7 g/dL (3.4-5.0); CREATININE 1.6 mg/dL (0.7-1.3); PHOSPHORUS 3.7 mg/dL (2.5-4.9); POTASSIUM 4.2 mmol/L (3.5-5.1)
[2017-01-02 03:37] VITALS: BP 122/72
[2017-01-02 09:11] LABS: HEMATOCRIT 24.3 % (42.0-52.0); HEMOGLOBIN 8.2 gm/dL (14.0-18.0); MCH 31.6 pg (26.0-34.0); MCHC 33.7 g/dL (28.0-37.0); MCV 93.9 fL (80.0-100.0); RBC 2.58 mil/uL (4.50-6.00); RDW 14.9 % (10.5-14.5)
[2017-01-02 09:12] VITALS: BP 131/72
[2017-01-02 11:22] LABS: URINE BILIRUBIN NEGATIVE (Negative); URINE BLOOD TRACE (Negative); URINE COLOR YELLOW; URINE GLUCOSE-RANDOM* NEGATIVE (Negative); URINE KETONES NEGATIVE (Negative); URINE NITRITE NEGATIVE (Negative); URINE PROTEIN (DIPSTICK) NEGATIVE (Negative); URINE SPECIFIC GRAVITY <= 1.005 (1.003-1.035); URINE UROBILINOGEN 0.2 E.U./dl (0.2-1.0)
[2017-01-02] MEDS ORDERED: LOPRESSOR25 PO (12:16)
[2017-01-02] MEDS ORDERED: PACERONE 200 M200 M1 PO (12:16)
[2017-01-02] MEDS ORDERED: ACETAMINOPHEN325 M1 PO (12:17)
[2017-01-02 14:27] LABS: URINE BILIRUBIN NEGATIVE (Negative); URINE BLOOD NEGATIVE (Negative); URINE COLOR YELLOW; URINE GLUCOSE-RANDOM* NEGATIVE (Negative); URINE KETONES NEGATIVE (Negative); URINE LEUKOCYTES-REFLEX NEGATIVE (Negative); URINE PROTEIN (DIPSTICK) NEGATIVE (Negative); URINE SPECIFIC GRAVITY <= 1.005 (1.003-1.035); URINE UROBILINOGEN 0.2 E.U./dl (0.2-1.0)
== END 2017-01-02 15:33 | DRG 219 ==
LOC: ER 05:40 → ICU 07:50 → 2N 07:50 → EROBS 07:50 → 2N 08:22 → TBA 18:02 → ICU 23:26 → 2N 12-29 15:08
PROVIDERS: Emergency Medicine; Hospitalist; Internal Medicine; Internal Medicine Nephrology; Nurse Practitioner; Student in an Organized Health Care Education/Training Program; Thoracic Surgery (Cardiothoracic Vascular Surgery)
PROC: 02RF0JZ Replacement of Aortic Valve with Synthetic Substitute, Open Approach (ICD-10-PCS; principal; 2016-12-26)
PROC: 5A1221Z Performance of Cardiac Output, Continuous (ICD-10-PCS; principal; 2016-12-26)
PROC: 02RX0JZ Replacement of Thoracic Aorta, Ascending/Arch with Synthetic Substitute, Open Approach (ICD-10-PCS; principal; 2016-12-26)
PROC: 30233M1 Transfusion of Nonautologous Plasma Cryoprecipitate into Peripheral Vein, Percutaneous Approach (ICD-10-PCS; 2016-12-26)
PROC: 30233K1 Transfusion of Nonautologous Frozen Plasma into Peripheral Vein, Percutaneous Approach (ICD-10-PCS; 2016-12-26)
PROC: 30233L1 Transfusion of Nonautologous Fresh Plasma into Peripheral Vein, Percutaneous Approach (ICD-10-PCS; 2016-12-26)
PROC: 30233R1 Transfusion of Nonautologous Platelets into Peripheral Vein, Percutaneous Approach (ICD-10-PCS; 2016-12-26)
PROC: 5A1935Z Respiratory Ventilation, Less than 24 Consecutive Hours (ICD-10-PCS; 2016-12-27)
PROC: 02HV33Z Insertion of Infusion Device into Superior Vena Cava, Percutaneous Approach (ICD-10-PCS; 2016-12-27)
PROC: B548ZZA Ultrasonography of Superior Vena Cava, Guidance (ICD-10-PCS; 2016-12-27)
DX: I71.01 Dissection of thoracic aorta (principal); R57.0 Cardiogenic shock; J96.00 Acute respiratory failure, unspecified whether with hypoxia or hypercapnia; G93.40 Encephalopathy, unspecified; D62 Acute posthemorrhagic anemia; N17.9 Acute kidney failure, unspecified; E78.00 Pure hypercholesterolemia, unspecified; I35.0 Nonrheumatic aortic (valve) stenosis; I25.10 Atherosclerotic heart disease of native coronary artery without angina pectoris; E11.65 Type 2 diabetes mellitus with hyperglycemia; I10 Essential (primary) hypertension; E78.5 Hyperlipidemia, unspecified; R41.0 Disorientation, unspecified; Z98.49 Cataract extraction status, unspecified eye; Z90.49 Acquired absence of other specified parts of digestive tract; Z95.5 Presence of coronary angioplasty implant and graft; Z83.3 Family history of diabetes mellitus; Z82.49 Family history of ischemic heart disease and other diseases of the circulatory system; Z79.899 Other long term (current) drug therapy; Z81.8 Family history of other mental and behavioral disorders; Z95.2 Presence of prosthetic heart valve
CPT/HCPCS: 10078; 10081; 47000; 47001; 47002; 47297; 47335; 47382; 48888; 50011; 50167; 50172; 50409; 50456; 50497; 51089; 51965; 52088; 52131; 53327; 53358; 54118; 55022; 56524; 56525; 56526; 56527; 56528; 56529; 56531; 56533; 56660; 56759; 57080; 57082; 57093; 62110; 62950; 64029; 65002; 65003; 65020; 65090; 65120

== ENCOUNTER 2017-01-02 09:49 | Inpatient (IN) | payer OTHER ==
[~2017-01-02] VITALS: Ht 167.6 cm; Wt 77.5 kg
--- NOTE | ~2017-01-02 | HC ---
[facility] [place] [address] CONSULTATION Name: AUDREY WANG Room #: 513-P [facility] IN .R.#: [id number] Admission: 01/02/17 Attend Phys: Audrey Lau MD Discharge: 01/13/17 Date of : 39 Report #: [id number] THIS REPORT FOR: //name// [facility] DATE OF SERVICE: 01/09/2017 NEUROBEHAVIORAL CONSULTATION ATTENDING PHYSICIAN: Audrey Lau M.D. ADVERTISER: Rj Pierce, PhD CLINICAL PRESENTATION: The patient is a 81-year-old male who was admitted to the rehabilitation unit at [facility] for a comprehensive inpatient rehabilitation program because of multifactorial encephalopathy. His history includes bioprosthetic valve replacement and acute respiratory failure with acute kidney injury. He has diabetes, aortic valve, lumbar back surgery in 1981, coronary artery disease. A complete description of his medical condition and history can be found in his medical record. Neuropsychological consultation was requested to provide assistance in the assessment of cognitive and emotional status and to provide recommendations and services. The patient was found to have delirium. His delirium appeared to resolve and underlying mild neurocognitive disorder persist. A complete neuropsych assessment was not completed prior to discharge. He may benefit from a followup assessment to clarify cognitive deficits, assist with diagnosis and treatment planning. Thank you very much for allowing me to provide the consultation on this patient. <ELECTRONICALLY SIGNED> By: Rj Pierce, PhD 01/15/17 1416 1455 28 Rj Pierce, PhD /nt
[~2017-01-02 09:49] MED LIST: ATORVASTATIN CA80 MG PO; GLIMEPIRIDE1 MG PO; GLUCOPHAGE XR750 MG PO
[2017-01-02] MEDS ORDERED: PACERONE 200 M200 M1 PO (12:16)
[2017-01-02] MEDS ORDERED: LOPRESSOR25 PO (12:16)
[2017-01-02] MEDS ORDERED: ACETAMINOPHEN325 M1 PO (12:17)
[2017-01-02 16:00] VITALS: BP 122/67
[2017-01-03 04:00] VITALS: BP 129/64; BP 129/69
[2017-01-03 06:02] LABS: ALBUMIN 2.7 g/dL (3.4-5.0); CALCIUM 8.1 mg/dL (8.5-10.1); CREATININE 1.5 mg/dL (0.7-1.3); PHOSPHORUS 4.1 mg/dL (2.5-4.9); POTASSIUM 4.5 mmol/L (3.5-5.1)
[2017-01-03 12:12] VITALS: BP 96/67
[2017-01-03 13:00] LABS: HEMATOCRIT 27.1 % (42.0-52.0); HEMOGLOBIN 9.2 gm/dL (14.0-18.0); MCH 31.8 pg (26.0-34.0); MCV 93.4 fL (80.0-100.0); RBC 2.9 mil/uL (4.50-6.00); RDW 15.3 % (10.5-14.5); WBC 10.7 thou/uL (4.0-11.0)
[2017-01-03 16:00] VITALS: BP 127/73
[2017-01-03 19:40] VITALS: BP 120/71
[2017-01-04 00:03] VITALS: BP 120/71
[2017-01-04 04:00] VITALS: BP 116/54
[2017-01-04 10:01] LABS: ALBUMIN 2.9 g/dL (3.4-5.0); CALCIUM 8.5 mg/dL (8.5-10.1); CREATININE 1.6 mg/dL (0.7-1.3); POTASSIUM 4.7 mmol/L (3.5-5.1); TOTAL PROTEIN 6.2 g/dL (6.4-8.2)
[2017-01-04 11:45] VITALS: BP 105/57
[2017-01-04 16:00] VITALS: BP 131/59
[2017-01-04 19:27] VITALS: BP 126/69
[2017-01-05 04:15] VITALS: BP 131/69
[2017-01-05 16:16] VITALS: BP 105/55
[2017-01-05 21:00] VITALS: BP 125/69
[2017-01-06 04:45] VITALS: BP 148/74
[2017-01-06 06:53] LABS: ALBUMIN 2.7 g/dL (3.4-5.0); CALCIUM 8.3 mg/dL (8.5-10.1); CREATININE 1.5 mg/dL (0.7-1.3); POTASSIUM 4.8 mmol/L (3.5-5.1); TOTAL BILIRUBIN 0.8 mg/dL (<0.1-1.0); TOTAL PROTEIN 5.7 g/dL (6.4-8.2)
[2017-01-06 15:56] VITALS: BP 110/56
[2017-01-06 21:00] VITALS: BP 129/64
[2017-01-07 06:16] VITALS: BP 130/65
[2017-01-07 15:58] VITALS: BP 111/48
[2017-01-07 21:25] VITALS: BP 127/64
[2017-01-08 06:41] VITALS: BP 130/65
[2017-01-08 08:40] VITALS: BP 109/53
[2017-01-08 16:00] VITALS: BP 118/54
[2017-01-08 21:46] VITALS: BP 131/62
[2017-01-09 05:14] VITALS: BP 130/65
[2017-01-09 15:30] VITALS: BP 111/54
[2017-01-09 20:38] VITALS: BP 139/59
[2017-01-09] MEDS ORDERED: GLUCOPHAGE XR750 MG PO (20:44)
[2017-01-09] MEDS ORDERED: AMARYL2 MG PO (20:45)
[2017-01-09] MEDS ORDERED: ASPIRIN325 PO (20:46)
[2017-01-10 06:50] VITALS: BP 130/68
[2017-01-10 16:00] VITALS: BP 108/54
[2017-01-10 20:22] VITALS: BP 126/59
[2017-01-11 05:27] VITALS: BP 141/57
[2017-01-11 14:54] VITALS: BP 130/69
[2017-01-11 16:36] VITALS: BP 130/69
[2017-01-11 21:35] VITALS: BP 133/66
[2017-01-12 05:19] VITALS: BP 132/61
[2017-01-12 07:50] VITALS: BP 134/66
[2017-01-12 16:00] VITALS: BP 124/63
[2017-01-13 06:13] VITALS: BP 142/70
[2017-01-13 08:40] VITALS: BP 130/69
[2017-01-13] MEDS ORDERED: XARELTO15 MG PO (10:13)
== END 2017-01-13 13:00 | disposition home health service (06) | DRG 91 ==
PROVIDERS: Nurse Practitioner; Physical Medicine & Rehabilitation; Registered Nurse; Thoracic Surgery (Cardiothoracic Vascular Surgery)
DX: G92 Toxic encephalopathy (principal); R57.0 Cardiogenic shock; I71.00 Dissection of unspecified site of aorta; D62 Acute posthemorrhagic anemia; N17.9 Acute kidney failure, unspecified; E46 Unspecified protein-calorie malnutrition; I82.622 Acute embolism and thrombosis of deep veins of left upper extremity; E11.65 Type 2 diabetes mellitus with hyperglycemia; E11.9 Type 2 diabetes mellitus without complications; I25.10 Atherosclerotic heart disease of native coronary artery without angina pectoris; I35.0 Nonrheumatic aortic (valve) stenosis; H91.90 Unspecified hearing loss, unspecified ear; E78.00 Pure hypercholesterolemia, unspecified; E78.5 Hyperlipidemia, unspecified; N18.9 Chronic kidney disease, unspecified; I12.9 Hypertensive chronic kidney disease with stage 1 through stage 4 chronic kidney disease, or unspecified chronic kidney disease; E11.22 Type 2 diabetes mellitus with diabetic chronic kidney disease; I48.91 Unspecified atrial fibrillation; D72.829 Elevated white blood cell count, unspecified; R53.81 Other malaise; Z95.1 Presence of aortocoronary bypass graft; Z90.49 Acquired absence of other specified parts of digestive tract; Z95.5 Presence of coronary angioplasty implant and graft; Z98.42 Cataract extraction status, left eye; Z95.2 Presence of prosthetic heart valve; Z98.41 Cataract extraction status, right eye; Z83.3 Family history of diabetes mellitus; Z82.49 Family history of ischemic heart disease and other diseases of the circulatory system; Z81.8 Family history of other mental and behavioral disorders
CPT/HCPCS: 10112

== ENCOUNTER → 2017-02-01 | Outpatient (CLI) | payer OTHER ==
[~2017-02-01] MED LIST changes: +ACETAMINOPHEN325 M1 PO; +AMARYL2 MG PO; +ASPIRIN325 PO; +LOPRESSOR25 PO; +PACERONE 200 M200 M1 PO; +XARELTO15 MG PO
== END ==
LOC: RAD 09:37
DX: J90 Pleural effusion, not elsewhere classified (principal); J98.11 Atelectasis; Z98.890 Other specified postprocedural states

== ENCOUNTER 2017-02-27 07:48 | Emergency (ER) | payer OTHER ==
[~2017-02-27] VITALS: Ht 167.6 cm; Wt 69.4 kg
[2017-02-27] MEDS ORDERED: NORCO 5-325 TA1 EACH PO (08:39)
[2017-02-27] MEDS ORDERED: KEFLEX500 MG PO (08:39)
== END 2017-02-27 09:05 | disposition home or self-care (01) ==
LOC: ER 07:48
DX: R04.0 Epistaxis (principal); E11.9 Type 2 diabetes mellitus without complications; I10 Essential (primary) hypertension; Z95.1 Presence of aortocoronary bypass graft

== ENCOUNTER → 2017-08-07 | Outpatient (CLI) | payer OTHER ==
[~2017-08-07] MED LIST changes: +KEFLEX500 MG PO; +NORCO 5-325 TA1 EACH PO
[2017-08-07 12:24] LABS: CREATININE 1.6 mg/dL (0.7-1.3)
== END ==
LOC: CAT 11:46
PROVIDERS: Thoracic Surgery (Cardiothoracic Vascular Surgery)
DX: M47.895 Other spondylosis, thoracolumbar region (principal); J98.11 Atelectasis; Z98.890 Other specified postprocedural states; Z86.79 Personal history of other diseases of the circulatory system

== ENCOUNTER → 2019-11-05 | Outpatient (CLI) | payer OTHER | LOC: SJCVCIMAG 12:17 | DX: I65.23 Occlusion and stenosis of bilateral carotid arteries (principal); I77.810 Thoracic aortic ectasia; I11.9 Hypertensive heart disease without heart failure; R00.1 Bradycardia, unspecified; R94.31 Abnormal electrocardiogram [ECG] [EKG]; I25.10 Atherosclerotic heart disease of native coronary artery without angina pectoris; E78.5 Hyperlipidemia, unspecified; E11.9 Type 2 diabetes mellitus without complications; Z79.899 Other long term (current) drug therapy; Z79.84 Long term (current) use of oral hypoglycemic drugs; Z82.49 Family history of ischemic heart disease and other diseases of the circulatory system; Z95.3 Presence of xenogenic heart valve ==

== ENCOUNTER → 2020-05-08 | Outpatient (CLI) | payer OTHER | LOC: SJCVC 12:34 | PROVIDERS: ATTEND Internal Medicine | DX: R94.31 Abnormal electrocardiogram [ECG] [EKG] (principal); R00.1 Bradycardia, unspecified; I25.10 Atherosclerotic heart disease of native coronary artery without angina pectoris; I71.01 Dissection of thoracic aorta; E78.5 Hyperlipidemia, unspecified; I65.23 Occlusion and stenosis of bilateral carotid arteries; I10 Essential (primary) hypertension; E11.9 Type 2 diabetes mellitus without complications; E78.00 Pure hypercholesterolemia, unspecified; Z95.3 Presence of xenogenic heart valve ==

== ENCOUNTER → 2020-10-30 | Outpatient (CLI) | payer OTHER | LOC: SJCVCIMAG 09:31 | PROVIDERS: ATTEND Internal Medicine | DX: I08.1 Rheumatic disorders of both mitral and tricuspid valves (principal); R94.31 Abnormal electrocardiogram [ECG] [EKG]; R00.1 Bradycardia, unspecified; I11.9 Hypertensive heart disease without heart failure; I25.10 Atherosclerotic heart disease of native coronary artery without angina pectoris; I71.01 Dissection of thoracic aorta; E78.5 Hyperlipidemia, unspecified; I65.23 Occlusion and stenosis of bilateral carotid arteries; E11.9 Type 2 diabetes mellitus without complications; Z95.3 Presence of xenogenic heart valve; M19.90 Unspecified osteoarthritis, unspecified site; Z90.49 Acquired absence of other specified parts of digestive tract; Z98.890 Other specified postprocedural states; Z79.82 Long term (current) use of aspirin; Z79.84 Long term (current) use of oral hypoglycemic drugs; Z79.899 Other long term (current) drug therapy; Z82.49 Family history of ischemic heart disease and other diseases of the circulatory system ==

== ENCOUNTER → 2021-05-03 | Outpatient (CLI) | payer OTHER | LOC: SJCVC 12:46 | PROVIDERS: ATTEND Internal Medicine | DX: R94.31 Abnormal electrocardiogram [ECG] [EKG] (principal); R00.1 Bradycardia, unspecified; I25.10 Atherosclerotic heart disease of native coronary artery without angina pectoris; I71.01 Dissection of thoracic aorta; E78.5 Hyperlipidemia, unspecified; I65.23 Occlusion and stenosis of bilateral carotid arteries; I10 Essential (primary) hypertension; E11.9 Type 2 diabetes mellitus without complications; E78.00 Pure hypercholesterolemia, unspecified; Z95.3 Presence of xenogenic heart valve; Z79.82 Long term (current) use of aspirin; Z79.899 Other long term (current) drug therapy; Z79.84 Long term (current) use of oral hypoglycemic drugs; Z82.49 Family history of ischemic heart disease and other diseases of the circulatory system ==